=== PATIENT | female | born 1955 | race Caucasian/White ===

== ENCOUNTER → 2023-12-26 13:43 | Outpatient (REF) | payer OTHER, SELFPAY | LOC: HWWDC 13:43 | PROVIDERS: ATTENDING PHYSICIAN Nurse Practitioner Adult Health; FAMILY PHYSICIAN Physician Assistant Medical | DX: Z12.31 Encounter for screening mammogram for malignant neoplasm of breast (principal) | CPT/HCPCS: 77063; 77067 ==

== ENCOUNTER → 2024-01-14 12:57 | Outpatient (REF) | payer OTHER, SELFPAY | LOC: HWRAD 12:57 | PROVIDERS: ATTENDING PHYSICIAN Physician Assistant Medical | DX: M81.0 Age-related osteoporosis without current pathological fracture (principal) | CPT/HCPCS: 77080 ==

== ENCOUNTER → 2025-02-19 14:40 | Outpatient (REF) | payer OTHER, SELFPAY | LOC: RCS 14:40 | PROVIDERS: ATTENDING PHYSICIAN Internal Medicine Cardiovascular Disease; FAMILY PHYSICIAN Physician Assistant Medical | DX: R06.02 Shortness of breath (principal) | CPT/HCPCS: 93306 ==

== ENCOUNTER → 2025-02-26 11:37 | Outpatient (REF) | payer OTHER, SELFPAY | LOC: RCS 11:37 | PROVIDERS: ATTENDING PHYSICIAN Internal Medicine Cardiovascular Disease; FAMILY PHYSICIAN Physician Assistant Medical | DX: R06.02 Shortness of breath (principal) | CPT/HCPCS: 78452; 93017; A9500 ==